=== PATIENT | female | born 1985 | race Hispanic/Latino ===

== ENCOUNTER 2022-05-13 11:07 | Emergency (ER) | payer OTHER ==
[2022-05-13 12:24] LABS: Urine Blood 3+ (Negative); Urine Glucose Negative (Negative); Urine Protein Negative (Negative); Urine Specific Gravity 1.015 (1.005-1.030); Urine pH 5.5 (5.0-7.0)
[2022-05-13 12:33] LABS: Urine Specific Gravity/Preg 1.015 (1.005-1.030)
--- NOTE | 2022-05-13 12:47 | RAD REPORT ---
EXAM DESCRIPTION: RAD - Chest Single View - 05/13/2022 12:19 pm CLINICAL HISTORY: CHEST PAIN Chest pain. COMPARISON: CHEST PA AND LAT 2 VIEW dated 10/06/2012 FINDINGS: Portable technique limits examination quality. The lungs are grossly clear. The heart is normal in size. No displaced fractures. IMPRESSION: No acute intrathoracic process suspected.
[2022-05-13 13:02] LABS: Absolute Lymphocytes (CBC) 1.8 K/uL (0.7-4.9); MCV 89.1 fL (80-100); MPV 8.4 fL (7.6-11.3); RBC Red Blood Cell Count 4.16 M/uL (3.86-4.86)
[2022-05-13 13:08] LABS: BUN Blood Urea Nitrogen 8 mg/dL (7-18); Bicarbonate 27 mmol/L (21-32); Glomerular Filtration Rate 121 ml/min (=/>90); Glucose Level 109 mg/dL (74-106); NT PRO-BNP 33 pg/mL (<125); Potassium 4.1 mmol/L (3.5-5.1); Sodium Level 140 mmol/L (136-145)
[2022-05-13 13:09] LABS: Troponin High Sensitivity < 3.0 pg/mL (<58.9)
--- NOTE | 2022-05-13 13:33 | ER ---
Nurse's Notes [facility] Name: Dari Gallardo Age: 36 yrs Sex: Female : 1985 Arrival Date: 05/13/2022 Time: 11:18 Bed 19 Private MD: Diagnosis: Palpitations Presentation: 05/13 11:18 Chief complaint: EMS states: Pt was sitting at her desk at work and all of a sudden jh5 started having sharp pains in her chest, pt denies pain radiating anywhere. Pt states this has happened before, not this bad, but has happened a couple of times since her son back in September. Coronavirus screen: Vaccine status: Patient reports receiving the 2nd dose of the covid vaccine. Client denies travel out of the [place] in the last 14 days. Ebola Screen: Patient negative for fever greater than or equal to 101.5 degrees Fahrenheit, and additional compatible Ebola Virus Disease symptoms Patient denies exposure to infectious person. Patient denies travel to an Ebola-affected area in the 21 days before illness onset. Initial Sepsis Screen: Does the patient meet any 2 criteria? No. Patient's initial sepsis screen is negative. Does the patient have a suspected source of infection? No. Patient's initial sepsis screen is negative. Risk Assessment: Do you want to hurt yourself or someone else? Patient reports no desire to harm self or others. Onset of symptoms was May 13, 2022. 11:18 Method Of Arrival: EMS: [place] [id number] 11:18 Acuity: ZAYRA 3 5 Triage Assessment: 11:24 General: Appears uncomfortable, obese, well groomed, well developed, Behavior is calm, jh5 cooperative, appropriate for age. Pain: Denies pain. Complains of pain in chest. 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 - Social history:: Smoking status: Patient denies any tobacco usage or history of. Screenin:28 [facility] ED Fall Risk Assessment (Adult) History of falling in the last 3 months, [facility] including since admission No falls in past 3 months (0 pts) Confusion or Disorientation No (0 pts) Intoxicated or Sedated No (0 pts) Impaired Gait No (0 pts) Mobility Assist Device Used No (0 pt) Altered Elimination No (0 pt) Score/Fall Risk Level 0 - 2 = Low Risk. Abuse screen: Denies threats or abuse. Denies injuries from another. Nutritional screening: No deficits noted. Tuberculosis screening: No symptoms or risk factors identified. Vital Signs: 11:18 BP 118 / 60; Pulse 69; Resp 18; Temp 98.6(O); Pulse Ox 100% ; Weight 95.25 kg; Height 5 [facility] ft. 5 in. (165.10 cm); Pain 0/10; 12:45 BP 130 / 86; Pulse 76; Resp 16; Pulse Ox 100% ; jh5 11:18 Body Mass Index 34.95 (95.25 kg, 165.10 cm) [facility] ED Course: 11:18 Patient arrived in ED. 5 11:23 Hunter Pierre [facility] 8 11:23 Anthony Salazar DO is Attending Physician. [facility] 11:24 Triage completed. [facility] 11:24 Arm band placed on right wrist. 5 11:28 Patient has correct armband on for positive identification. Bed in low position. Call [facility] light in reach. Side rails up X 1. 11:28 No provider procedures requiring assistance completed. Maintain EMS IV. Dressing [facility] intact. Site clean \T\ dry. Gauge \T\ site: 22LAC. 12:20 XRAY Chest (1 view) In Process Unspecified. EDMS 13:32 Calvin Walker MD is Referral Physician. jr8 Administered Medications: No medications were administered Medication: 11:29 VIS not applicable for this client. [facility] Outcome: 13:33 Discharge ordered by . 8 13:53 Patient left the ED. [facility] Signatures: Dispatcher [employer] EDMS Hunter Pierre PA PA jr8 Maria Ines Cortes, RN RN [facility]
--- NOTE | 2022-05-13 13:33 | EDPHYS ---
Physician Documentation [facility] Name: Dari Gallardo Age: 36 yrs Sex: Female : 1985 Arrival Date: 05/13/2022 Time: 11:18 Bed 19 Private MD: ED Physician Anthony Salazar HPI: 05/13 13:28 This 36 yrs old Female presents to ER via EMS with complaints of palpitations. jr8 13:28 The patient presents with a history of irregular heart beat. Context: The symptoms jr8 occur at rest. Onset: The symptoms/episode began/occurred acutely, today. Duration: The patient or guardian reports a single episode, that is now resolved. Modifying factors: The symptoms are aggravated by nothing. The symptoms are alleviated by nothing. Associated signs and symptoms: Pertinent positives: lightheadedness. Severity of symptoms: At their worst the symptoms were moderate in the emergency department the symptoms have resolved. The patient has experienced similar episodes in the past, a few times, but today's symptoms are worse, lasting longer, today's symptoms are similar. The patient has not recently seen a physician. 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 - Social history:: Smoking status: Patient denies any tobacco usage or history of. ROS: 13:28 Eyes: Negative for injury, pain, redness, and discharge, ENT: Negative for injury, jr8 pain, and discharge, Neck: Negative for injury, pain, and swelling, Respiratory: Negative for shortness of breath, cough, wheezing, and pleuritic chest pain, Abdomen/GI: Negative for abdominal pain, nausea, vomiting, diarrhea, and constipation, Back: Negative for injury and pain, MS/Extremity: Negative for injury and deformity, Skin: Negative for injury, rash, and discoloration, Neuro: Negative for headache, weakness, numbness, tingling, and seizure. 13:28 Cardiovascular: Positive for palpitations. Exam: 13:28 Constitutional: This is a well developed, well nourished patient who is awake, alert, jr8 and in no acute distress. Eyes: Pupils equal round and reactive to light, extra-ocular motions intact. Lids and lashes normal. Conjunctiva and sclera are non-icteric and not injected. Cornea within normal limits. Periorbital areas with no swelling, redness, or edema. Cardiovascular: Regular rate and rhythm with a normal S1 and S2. No gallops, murmurs, or rubs. Normal PMI, no JVD. No pulse deficits. Respiratory: Lungs have equal breath sounds bilaterally, clear to auscultation and percussion. No rales, rhonchi or wheezes noted. No increased work of breathing, no retractions or nasal flaring. Abdomen/GI: Soft, non-tender, with normal bowel sounds. No distension or tympany. No guarding or rebound. No evidence of tenderness throughout. Skin: Warm, dry with normal turgor. Normal color with no rashes, no lesions, and no evidence of cellulitis. MS/ Extremity: Pulses equal, no cyanosis. Neurovascular intact. Full, normal range of motion. Neuro: Awake and alert, GCS 15, oriented to person, place, time, and situation. Cranial nerves II-XII grossly intact. Motor strength 5/5 in all extremities. Sensory grossly intact. Cerebellar exam normal. Normal gait. 13:28 ECG was reviewed by the Attending Physician. Vital Signs: 11:18 BP 118 / 60; Pulse 69; Resp 18; Temp 98.6(O); Pulse Ox 100% ; Weight 95.25 kg; Height 5 jh5 ft. 5 in. (165.10 cm); Pain 0/10; 12:45 BP 130 / 86; Pulse 76; Resp 16; Pulse Ox 100% ; jh5 11:18 Body Mass Index 34.95 (95.25 kg, 165.10 cm) 5 MDM: 11:38 Patient medically screened. [facility] 13:28 Data reviewed: vital signs, nurses notes, lab test result(s), cardiac enzymes, troponin jr i, CBC, white blood cell count, hemoglobin, hematocrit, platelets, electrolytes, sodium, potassium, chloride, serum bicarbonate, BUN, creatinine, serum glucose, EKG, radiologic studies, plain films, and as a result, I will discharge patient. Independent interpretation of the following test(s) in the Emergency Department EKG: See my EKG interpretation above X-Ray: My interpretation is No acute cardiothoracic findings . Counseling: I had a detailed discussion with the patient and/or guardian regarding: the historical points, exam findings, and any diagnostic results supporting the discharge/admit diagnosis, lab results, radiology results, the need for outpatient follow up, a storage battery charger, to return to the emergency department if symptoms worsen or persist or if there are any questions or concerns that arise at home. ED course: Discussed with patient that there is no acute findings on chest x-ray, ECG, lab work including cardiac enzyme. Most likely palpitations secondary to occasional premature ventricular contraction or the like. Recommended seeing cardiology for Holter monitor if they feel it is necessary. If worsening point time to come back for further evaluation. Otherwise hemodynamically stable and safe to be discharged at home. Patient agrees with plan and will follow up and or come back.. 05/13 11:38 Order name: Basic Metabolic Panel; Complete Time: 13: [facility] 05/13 11:38 Order name: CBC with Diff; Complete Time: 13: [facility] 05/13 11:38 Order name: NT PRO-BNP; Complete Time: 13: [facility] 05/13 11:38 Order name: Troponin HS; Complete Time: 13: [facility] 05/13 12:25 Order name: Urine Dipstick-Ancillary; Complete Time: 13:28 EDGA 05/13 12:30 Order name: Urine --Ancillary (enter results) bd 05/13 11:38 Order name: XRAY Chest (1 view); Complete Time: 13:28 05/13 11:38 Order name: EKG; Complete Time: 11:39 05/13 11:38 Order name: Cardiac monitoring; Complete Time: 11:40 05/13 11:38 Order name: EKG - Nurse/Tech; Complete Time: 11:40 05/13 11:38 Order name: IV Saline Lock; Complete Time: 11:05/13 11:38 Order name: Labs collected and sent; Complete Time: 11: 05/13 11:38 Order name: O2 Per Protocol; Complete Time: :05/13 11:38 Order name: O2 Sat Monitoring; Complete Time: :05/13 12:07 Order name: Labs - recollect needed: recollect green and lavender top; Complete Time: bd 12:45 EC: Rate is 72 beats/min. Rhythm is regular, Normal Sinus Rhythm. QRS [place] is Normal. NC jr8 interval is normal at 158 msec. QRS interval is normal at 98 msec. QT interval is normal at 402 msec. No Q waves. T waves are Normal. No ST changes noted. Clinical impression: Normal ECG. Interpreted by me. Reviewed by me. Administered Medications: No medications were administered Disposition: 19:18 Co-signature as Attending Physician, Anthony Salazar DO I was immediately available on-site ms3 in the Emergency Department for consultation in the care of the patient. Disposition Summary: 05/13/22 13:33 Discharge Ordered Location: Home jr8 Problem: new jr8 Symptoms: have improved jr8 Condition: Stable jr8 Diagnosis - Palpitations jr8 Followup: jr8 - With: Calvin Walker MD - When: 2 - 3 days - Reason: Recheck today's complaints, Continuance of care, Re-evaluation by your physician Discharge Instructions: - Discharge Summary Sheet jr8 - Palpitations jr8 Forms: - Medication Reconciliation Form jr8 - Thank You Letter jr8 - Antibiotic Education jr8 - Prescription Opioid Use jr8 Signatures: Dispatcher [employer] EDMS Amy Bird Josh, PA PA jr8 Anthony Salazar DO DO ms3 Maria Ines Cortes, RN RN jh5
[2022-05-13 14:48] VITALS: BP 118/60; TEMP 98.6; O2SAT 100
--- NOTE | 2022-05-14 12:29 | EKG ---
Test Date: 2022-05-13 Test Time: 11:25:32 Animal Anatomist: ONI MEASUREMENT RESULTS: Intervals: Rate: 72 NM: 158 QRSD: 98 QT: 402 QTc: 440 [place]: P: 46 NM: 158 QRS: 0 T: 36 INTERPRETIVE STATEMENTS: Normal sinus rhythm Incomplete right bundle branch block Moderate voltage criteria for LVH, may be normal variant Borderline ECG No previous ECG available for comparison Electronically Signed On 05-14-22 12:25:38 RN HOUSE SUPERVISOR by Francisco Quezada
== END 2022-05-13 13:53 | disposition home or self-care (01) ==
LOC: ER 11:07
DX: R00.2 Palpitations (principal)
CPT/HCPCS: 36415; 71045; 80048; 81003; 81025; 83880; 84484; 85025; 93005; 99283

== ENCOUNTER 2022-10-10 20:09 | Emergency (ER) | payer OTHER ==
--- OUTSIDE RECORDS SUMMARY | 2022-10-10 20:12 | XMS REPORT | Continuity of Care Document ---
:1985 Author Organization [facility] t Address [address] [place] [address] [place] [id number] Care Team Providers Name Role Phone PCP, PATIENT DOES NOT HAVE A Primary Care Physician Unavaila MANDY Steel Attending Clinician Unavailable Mandy Kingston DO Attending Clinician Payers Payer Name Policy Type Policy Number Effective Date Expiration Date S [facility] [id number] 2014 00:00:00 Problems This patient has no known problems. Allergies, Adverse Reactions, Alerts Allergy Allergy Status Severity Reaction(s) Onset Inactive Treating Comm ents Source Name Type Date Date Clinician NO KNOWN Drug Active [facility] ALLERGIE Class [facility] of [facility] Social History Social Habit Start Date Stop Date Quantity Comments Source Exposure to Not sure [facility] SARS-CoV-2 (event) Medica l Branch Sex Assigned At [birth year] [facility] 00:00:00 00:00:00 [facility] Smoking Status Start Date Stop Date Source Unknown if ever smoked [facility] Medications Ordered Filled Start Stop Current Ordering Indication Dosage Frequency Signature Comments Components Source Medication Medication Date Date Medication? Clinician (SIG) Name Name predniSONE 2021- No [id number] 60mg Take 6 [facility] 10 mg 3-10 03-18 tablets by ity of tablet 00:00: 04:59 mouth [place] 00 :00 daily for Medical 7 days. Branch valACYclovi 2021- No [id number] 1g Take 1 Univers r (VALTREX) 3-10 03-18 tablet by it y of 1 gram 00:00: 04:59 mouth 3 [place] tablet 00 :00 (three) Medical times [place] daily for 7 days. Vital Signs Vital Name Observation Time Observation Value Comments Source Systolic blood 2021-06-29 00:14:00 142 mm[Hg] Univer sity of pressure [facility] Diastolic blood 2021-06-29 00:14:00 82 mm[Hg] Unive rsity of pressure [facility] Heart rate 2021-06-29 00:14:00 96 /min [facility] Body temperature 2021-06-29 00:14:00 37.17 [facility] 2021-06-29 00:14:00 18 /min [facility] Body weight 2021-06-29 00:14:00 95.255 kg [facility] Oxygen saturation in 2021-06-29 00:14:00 99 /min [facility] Arterial blood by [place] [facility] Pulse oximetry Branch Procedures Procedure Date / Time Performed Performing Clinician [facility] e ASSIGNMENT OF BENEFITS 2021-06-29 00:43:24 Doctor Unassigned, No [facility] NOTICE OF PRIVACY 2021-06-29 00:07:43 Doctor Unassigned, No [facility] Encounters Start End Encounter Admission Attending Care Care Encounter Source Date/Time Date/Time Type Type Clinicians Facility Department ID 2021-06-28 2021-06-28 Emergency X LISA [facility] ERT [id number] [facility] 18:18:00 18:46:00 MANDY jose [facility] 2021-06-28 2021-06-28 Emergency Lisa [facility] [id number] [facility] 18:18:00 18:46:00 Mandy HANKS [id number] damon [facility] [id number] [facility] [id number] Medi [facility] 084 Branch Results This patient has no known results.
[2022-10-10] MEDS ORDERED: IBUPROFEN 400 MG TAB ONE (20:52)
--- NOTE | 2022-10-10 21:37 | RAD REPORT ---
EXAM DESCRIPTION: RAD - Foot Right 3 View - 10/10/2022 9:24 pm CLINICAL HISTORY: injury, pain COMPARISON: <Comparisons> FINDINGS: No fracture or dislocation seen.
--- NOTE | 2022-10-10 21:44 | ER ---
Nurse's Notes [facility] Name: Dari Gallardo Age: 37 yrs Sex: Female : 1985 Arrival Date: 10/10/2022 Time: 20:09 Bed 11 Private MD: Diagnosis: Sprain of foot Presentation: 10/10 20:41 Chief complaint: Patient states: I was playing softball and i fell and i felt a pop in kd3 my right foot and now it hurts to put pressure down on it. Coronavirus screen: Vaccine status: Patient reports being unvaccinated. Ebola Screen: No symptoms or risks identified at this time. Initial Sepsis Screen: Does the patient meet any 2 criteria? No. Patient's initial sepsis screen is negative. Does the patient have a suspected source of infection? No. Patient's initial sepsis screen is negative. Risk Assessment: Do you want to hurt yourself or someone else? Patient reports no desire to harm self or others. Onset of symptoms was October 10, 2022. 20:41 Method Of Arrival: Wheelchair kd3 20:41 Acuity: ZAYRA 4 kd3 Triage Assessment: 20:42 General: Appears uncomfortable, Behavior is calm, cooperative. Pain: Complains of pain kd3 in dorsum of right foot. Musculoskeletal: Circulation, motion, and sensation intact. 21:56 Injury Description: Bruise. kd3 Historical: - Allergies: 20:42 No Known Allergies; kd3 - Immunization history:: Adult Immunizations up to date. - Social history:: Smoking status: Patient denies any tobacco usage or history of. Screenin:55 [facility] ED Fall Risk Assessment (Adult) History of falling in the last 3 months, kd3 including since admission No falls in past 3 months (0 pts) Confusion or Disorientation No (0 pts) Intoxicated or Sedated No (0 pts) Impaired Gait No (0 pts) Mobility Assist Device Used No (0 pt) Altered Elimination No (0 pt) Score/Fall Risk Level 0 - 2 = Low Risk Maintained a safe environment. Abuse screen: Denies threats or abuse. Denies injuries from another. Nutritional screening: No deficits noted. Tuberculosis screening: No symptoms or risk factors identified. Vital Signs: 20:41 BP 132 / 80; Pulse 102; Resp 18; Temp 98.7(O); Pulse Ox 99% on R/A; Weight 99.79 kg; kd3 Height 5 ft. 5 in. ; 20:41 Body Mass Index 36.61 (99.79 kg, 165.1 cm) kd3 ED Course: 20:10 Patient arrived in ED. [facility] 20:22 Gautam Godinez PA is PHCP. [facility] 20:22 Hiren Rai MD is Attending Physician. [facility] 20:36 Stella Fernández, JANETTE is Primary Nurse. kd3 20:42 Triage completed. kd3 20:42 Arm band placed on right wrist. kd3 21:26 Foot Right 3 View XRAY In Process Unspecified. EDMS 21:43 Glynn Levy DPM is Referral Physician. jmm 21:56 Patient has correct armband on for positive identification. kd3 21:56 No provider procedures requiring assistance completed. Patient did not have IV access kd3 during this emergency room visit. Administered Medications: 20:45 Drug: Ibuprofen PO 800 mg Route: PO; kd3 Medication: 21:56 VIS not applicable for this client. kd3 Outcome: 21:44 Discharge ordered by MD. [facility] 21:56 Discharged to home via wheelchair, with crutches, with family. kd3 21:56 Condition: stable 21:56 Discharge instructions given to patient, Instructed on discharge instructions, follow up and referral plans. medication usage, Demonstrated understanding of instructions, follow-up care, medications, Prescriptions given X 2. 21:57 Patient left the ED. kd3 Signatures: Dispatcher [employer] EDMS Gautam Godinez PA PA jmm Alexander, Jessica [facility] Stella Fernández, JANETTE RN kd3
--- NOTE | 2022-10-10 21:44 | EDPHYS ---
Physician Documentation [facility] Name: Dari Gallardo Age: 37 yrs Sex: Female : 1985 Arrival Date: 10/10/2022 Time: 20:09 Bed 11 Private MD: ED Physician Hiren Rai HPI: 10/10 21:40 This 37 yrs old Female presents to ER via Wheelchair with complaints of Foot jmm Injury. 21:40 The patient presents with an injury, pain. Onset: The symptoms/episode began/occurred jmm acutely, just prior to arrival. This is a 37 year old female with no chronic medical conditions that presents to the ED with complaints of right anterior foot pain. Patient twisted her foot while playing softball. . Historical: - Allergies: 20:42 No Known Allergies; kd3 - Immunization history:: Adult Immunizations up to date. - Social history:: Smoking status: Patient denies any tobacco usage or history of. ROS: 21:40 Constitutional: Negative for fever, chills, and weight loss, Cardiovascular: Negative jmm for chest pain, palpitations, and edema, Respiratory: Negative for shortness of breath, cough, wheezing, and pleuritic chest pain. 21:40 MS/extremity: Positive for injury or acute deformity. 21:40 All other systems are negative. Exam: 21:40 Constitutional: This is a well developed, well nourished patient who is awake, alert, jmm and in no acute distress. Head/Face: atraumatic. Eyes: EOMI, no conjunctival erythema appreciated ENT: Moist Mucus Membranes Neck: Trachea midline, Supple Chest/axilla: Normal chest wall appearance and motion. Cardiovascular: Regular rate and rhythm. No edema appreciated Respiratory: Normal respirations, no respiratory distress appreciated Abdomen/GI: Non distended Back: Normal ROM Skin: General appearance color normal 21:40 Musculoskeletal/extremity: anterior foot pain on palpation, compartments are soft, full dorsalis pulse, NVI. 21:40 Skin: Appearance: Color: normal in color. 21:40 Neuro: Orientation: is normal, Mentation: is normal, Memory: is normal. 21:40 Psych: Behavior/mood is pleasant, cooperative. Vital Signs: 20:41 BP 132 / 80; Pulse 102; Resp 18; Temp 98.7(O); Pulse Ox 99% on R/A; Weight 99.79 kg; kd3 Height 5 ft. 5 in. ; 20:41 Body Mass Index 36.61 (99.79 kg, 165.1 cm) kd3 MDM: 20:40 Patient medically screened. [facility] 21:42 Differential diagnosis: fracture, sprain, strain. Data reviewed: vital signs, nurses [facility] notes, radiologic studies, plain films. I considered the following discharge prescriptions or medication management in the emergency department Medications were administered in the Emergency Department. See MAR. Independent interpretation of the following test(s) in the Emergency Department X-Ray: My interpretation is No fracture seen. Counseling: I had a detailed discussion with the patient and/or guardian regarding: the historical points, exam findings, and any diagnostic results supporting the discharge/admit diagnosis, radiology results, the need for outpatient follow up, to return to the emergency department if symptoms worsen or persist or if there are any questions or concerns that arise at home. 10/10 20:41 Order name: Foot Right 3 View XRAY; Complete Time: 21:40 [facility] 10/10 21:40 Order name: Anjel wrap-joint; Complete Time: 21:57 [facility] 10/10 21:40 Order name: Crutches; Complete Time: 21:57 [facility] Administered Medications: 20:45 Drug: Ibuprofen PO 800 mg Route: PO; kd3 Disposition: 10/11 05:24 Co-signature as Attending Physician, Hiren Rai MD I agree with the assessment sp4 and plan of care. I reviewed the patient's care provided by the Advanced Practice Provider and agree with the diagnosis and treatment plan. Disposition Summary: 10/10/22 21:44 Discharge Ordered Location: Home [facility] Condition: Stable [facility] Diagnosis - Sprain of foot [facility] Followup: [facility] - With: Glynn Levy DPM - When: 2 - 3 days - Reason: Recheck today's complaints, Continuance of care, Re-evaluation by your physician Discharge Instructions: - Discharge Summary Sheet [facility] - Foot Sprain [facility] Forms: - Medication Reconciliation Form [facility] - Thank You Letter [facility] - Antibiotic Education [facility] - Prescription Opioid Use [facility] - Work release form kd3 Prescriptions: - Diclofenac Sodium 75 mg Oral Tablet Sustained Release - take 1 tablet by ORAL route 2 times per day; 30 tablet; Refills: 0, Product [facility] Selection Permitted - orphenadrine citrate 100 mg Oral Tablet Sustained Release - take 1 tablet by ORAL route 2 times per day As needed; 20 tablet; Refills: 0, [facility] Product Selection Permitted Signatures: Dispatcher [employer] Gautam Purdy PA PA jmm Doucette, Kyli, RN RN kd3 Hiren Rai MD MD sp4
[2022-10-10 22:06] VITALS: BP 132/80; TEMP 98.7; O2SAT 99
== END 2022-10-10 21:57 | disposition home or self-care (01) ==
LOC: ER 20:09
DX: S93.601A Unspecified sprain of right foot, initial encounter (principal)
CPT/HCPCS: 99283

== ENCOUNTER 2023-01-06 07:27 | Day surgery (SDC) | payer OTHER ==
[2023-01-06] MEDS ORDERED: Ringers Lactate 1,000 ML IV ONE ×2 (08:15→10:35)
[2023-01-06 08:26] LABS: Albumin 3.8 g/dL (3.4-5.0); Bilirubin Direct 0.1 mg/dL (0-0.2); Bilirubin Indirect, Calculated 0.4 mg/dL (0.2-0.8); Bilirubin Total 0.5 mg/dL (0.2-1.0); Protein, Total 7.6 g/dL (6.4-8.2)
[2023-01-06 08:44] LABS: Urine Specific Gravity/Preg >1.030 (1.005-1.030)
[2023-01-06] MEDS ORDERED: FENTANYL CITR 100 MCG/2 ML ONE (08:46)
[2023-01-06] MEDS ORDERED: propofoL 200 MG/20 ML VIAL IV ONE (08:46)
[2023-01-06] MEDS ORDERED: ROCURONIUM 50 MG/5 ML VIAL IV ONE ×2 (08:47→10:40)
[2023-01-06] MEDS ORDERED: MIDAZOLAM HCL 2 MG/2 ML INJ ONE (08:47)
[2023-01-06] MEDS ORDERED: ONDANSETRON 4 MG/2 ML VIAL ONE ×2 (08:48→11:35)
[2023-01-06] MEDS ORDERED: KETOROLAC 30 MG/ML INJ ONE (08:48)
[2023-01-06] MEDS ORDERED: dexAMETHasone 10 MG/ML VIAL ONE ×2 (08:48→09:44)
[2023-01-06] MEDS ORDERED: LIDOCAINE 2% MPF 5 ML VIAL ONE (08:49)
[2023-01-06 08:50] VITALS: O2SAT 100
[2023-01-06] MEDS: CEFOXITIN SODIUM 1 GM/VIAL ONE ×2 (08:59→09:43)
[2023-01-06] MEDS ORDERED: NS 0.9% VIAL 10 ML ONE (09:44)
[2023-01-06] MEDS ORDERED: EPINEPHRINE 1 MG/ML VIAL ONE (09:45)
--- NOTE | 2023-01-06 10:44 | P.BOP ---
Preoperative diagnosis: acute cholecystitis, symptomatic cholelithiasis Postoperative diagnosis: same Primary procedure: Laparoscopic cholecystectomy Gis Programmer: Fabiana Engel (Jarocho) Estimated blood loss: <10cc Specimen: gb Findings: as above Anesthesia: General Complications: None Transferred to: Recovery Room Condition: Good
[2023-01-06] MEDS ORDERED: Mastisol Adhesive Liq ONE (10:48)
[2023-01-06] MEDS: HYDROMORPHONE HCL 1 MG/ML INJ ONE ×2 (11:35→11:41)
[2023-01-06 13:44] VITALS: BP 109/61; TEMP 96.8
--- NOTE | 2023-01-06 22:18 | OP ---
Date of Procedure: 01/06/2023 Surgeon: Adams Whaley MD Pediatric Nurse: HENRRY Greco. Preoperative Diagnoses: Acute cholecystitis, symptomatic cholelithiasis. Postoperative Diagnoses: Acute cholecystitis, symptomatic cholelithiasis. Procedure: Laparoscopic cholecystectomy. Estimated Blood Loss: Less than 10 cc. Specimen: Gallbladder. Findings: As above. Anesthesia: General plus local. Complications: None. Indication: This is the case of a 37-year-old female, who comes to us with above diagnosis. I fully explained the benefits, alternatives, and risks of laparoscopic, possible open cholecystectomy which include, but not limited to, infection, bleeding, damage to adjacent structures, anesthesia complica tion, choledocholithiasis, bile leak, pancreatitis, AK, and even . She also understands this ma y not relieve any symptoms. She might need more than one surgical intervention. She understood, sig omaira a consent. Procedure In Detail: Patient was brought to the operating room, placed in supine position. Anesthes ia was done without complication. Abdominal area was prepped and draped in a sterile fashion. Eugenie ine 0.5% was injected for local anesthetic followed by sharp incision of skin in the infraumbilical r egion. Incision was carried down to fascia, which was opened under direct vision. Peritoneum was en countered, opened under direct vision. Vicryl #1 placed inside the fascia. Saravanan trocar was carefu lly introduced. No bleeding was obtained. I placed 3 more trocars, 5 mm each one of them, 1 in the epigastric area, 2 in the right upper quadrant using same technique which consisted of local anesthet ic, sharp incision of the skin and introduction of the trocars under direct vision. This allowed me to put a grasper in the fundus of the gallbladder and another grasper in the infundibulum, retracting the gallbladder in the inferolateral fashion exposing the triangle of Calot, obtaining critical view . Cystic duct and cystic artery were clearly isolated, freed circumferentially, and a connection bet ween those, and the gallbladder was clearly identified. I proceeded to ligate those by using at leas t 3 clips proximal, 1 clip distal, ligation in middle, and the same was done with the cystic artery. A small little branch along the cystic artery was also ligated using the same technique. Hepatic ar teries and common bile duct were protected at all times. Gallbladder was removed from the liver usin g Bovie cauterizer and removed from abdominal cavity using EndoCatch through the umbilical incision. Area was inspected once again. No bile leak. No bleeding. At that moment, I proceeded to remove t he trocars under direct vision, deflating the pneumoperitoneum, closing the fascia with #1 Vicryl. I rrigated the subcutaneous tissue, closed that with 3-0 chromic and skin in a subcuticular fashion wit h 3-0 chromic and Steri-Strips on top. Sponge count and instrument counts correct. Patient tolerate d the procedure well. Patient was sent to Recovery in stable condition. BOSTON/JOSE Voice ID: [id number] Report ID: [id number]
--- NOTE | 2023-01-06 22:22 | DS ---
Date of Discharge: 01/06/2023 Diagnosis: Acute cholecystitis, symptomatic cholelithiasis. Procedure: Laparoscopic cholecystectomy. Disposition: Home. Activity: As tolerated. No heavy lifting. Plan: Follow up in my office in 1 week. Call for appointment at [phone]. Keep area dry for 48 dolores rs, then may shower. Keep Steri-Strips intact. BOSTON/JOSE Voice ID: [id number] Report ID: [id number]
== END 2023-01-06 13:30 | disposition home or self-care (01) ==
LOC: OR 07:27
PROVIDERS: ATTEND Surgery
PROC: 0FT44ZZ Resection of Gallbladder, Percutaneous Endoscopic Approach (ICD-10-PCS; principal; 2023-01-06 09:30)
DX: K80.10 Calculus of gallbladder with chronic cholecystitis without obstruction (principal)
CPT/HCPCS: 36415; 81025; 80076; 88304; 83690; 47562; A4216; J2704; J2001; J2250; J3010; J1100 ×2; J0171; J1170; J0694; J2405 ×2; J7120 ×2

== ENCOUNTER 2023-01-07 19:58 | Emergency (ER) | payer OTHER ==
[2023-01-07 20:46] LABS: Absolute Lymphocytes (CBC) 3.2 K/uL (0.7-4.9); Hematocrit 35.9 % (36.0-45.0); Lymphocytes % 28.9 % (15.3-44.8); MCV 88.4 fL (80-100); MPV 8.6 fL (7.6-11.3); Platelets 305 thou/uL (152-406); RBC Red Blood Cell Count 4.06 M/uL (3.86-4.86)
[2023-01-07] MEDS ORDERED: LORAZEPAM 0.5 MG TABLET ONE (20:53)
--- NOTE | 2023-01-07 21:04 | RAD REPORT ---
EXAM DESCRIPTION: RAD - Chest Single View - 01/07/2023 8:54 pm CLINICAL HISTORY: PALPITATIONS Chest pain. COMPARISON: <Comparisons> FINDINGS: Portable technique limits examination quality. The lungs are underinflated but grossly clear. The heart is normal in size. No displaced fractures. IMPRESSION: No acute intrathoracic process suspected.
[2023-01-07 21:06] LABS: Albumin 3.6 g/dL (3.4-5.0); Bilirubin Direct 0.1 mg/dL (0-0.2); Bilirubin Indirect, Calculated 0.2 mg/dL (0.2-0.8); Bilirubin Total 0.3 mg/dL (0.2-1.0); Potassium 3.4 mEq/L (3.5-5.1); Protein, Total 7.1 g/dL (6.4-8.2); Troponin High Sensitivity 3.9 pg/mL (<58.9)
[2023-01-07] MEDS ORDERED: NA CHLORIDE 0.9% 1,000 ML ONE (21:22)
--- NOTE | 2023-01-07 21:59 | RAD REPORT ---
EXAM DESCRIPTION: CT - Chest For Pe Angio - 01/07/2023 9:47 pm CLINICAL HISTORY: Chest pain. PALPITATIONS COMPARISON: No comparisons TECHNIQUE: CT angiogram of the pulmonary arteries was performed with MIP. All CT scans are performed using dose optimization technique as appropriate and may include automated exposure control or mA/KV adjustment according to patient size. FINDINGS: No evidence of pulmonary thromboembolism. No acute aortic finding demonstrated. The lungs are clear. No significant pericardial or pleural fluid. No concerning bony finding. IMPRESSION: No evidence of pulmonary thromboembolism. No acute lung findings.
--- NOTE | 2023-01-07 22:02 | ER ---
Nurse's Notes [facility] Name: Dari Gallardo Age: 37 yrs Sex: Female : 1985 Arrival Date: 01/07/2023 Time: 19:58 Bed 15 Private MD: Diagnosis: Palpitations;Hypokalemia Presentation: 01/07 20:11 Chief complaint: Patient states: had a laparoscopic cholycystectomy yesterday. Reports me1 that she sat up a little while ago and had some palpitations, became sweaty and had some tingling to the left side of her head. Also reports that she has only urinated two times today. Coronavirus screen: Vaccine status: Patient reports being unvaccinated. Ebola Screen: No symptoms or risks identified at this time. Initial Sepsis Screen: Does the patient meet any 2 criteria? No. Patient's initial sepsis screen is negative. Does the patient have a suspected source of infection? No. Patient's initial sepsis screen is negative. Risk Assessment: Do you want to hurt yourself or someone else? Patient reports no desire to harm self or others. Onset of symptoms was January 06, 2023. 20:11 Method Of Arrival: Wheelchair me1 20:11 Acuity: ZAYRA 3 me1 Triage Assessment: 20:22 General: Appears uncomfortable, obese, well groomed, Behavior is calm, cooperative, me1 appropriate for age. Pain: Complains of pain in umbilical area Pain does not radiate. Pain currently is 4 out of 10 on a pain scale. Quality of pain is described as tender, Pain began gradually, Is continuous. Neuro: Level of Consciousness is awake, alert, obeys commands, Oriented to person, place, time, situation, Appropriate for age. Cardiovascular: Capillary refill < 3 seconds Patient's skin is warm and dry. Respiratory: Airway is patent Respiratory effort is even, unlabored, Respiratory pattern is regular, symmetrical. Derm: dressings to abdomen are clean and dry from lap cholecystectomy yesterday. 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 - Social history:: Smoking status: Patient denies any tobacco usage or history of. Screenin:26 [facility] ED Fall Risk Assessment (Adult) History of falling in the last 3 months, me1 including since admission No falls in past 3 months (0 pts) Confusion or Disorientation No (0 pts) Intoxicated or Sedated No (0 pts) Impaired Gait No (0 pts) Mobility Assist Device Used No (0 pt) Altered Elimination No (0 pt) Score/Fall Risk Level 0 - 2 = Low Risk. Abuse screen: Denies threats or abuse. Nutritional screening: No deficits noted. Tuberculosis screening: No symptoms or risk factors identified. Assessment: 20:26 General: see triage assessment. . me1 Vital Signs: 20:11 BP 123 / 63; Pulse 97; Resp 19; Temp 98.5(O); Pulse Ox 99% on R/A; Weight 104.33 kg; me1 Height 5 ft. 5 in. ; Pain 4/10; 20:57 BP 120 / 89; Pulse 80; Resp 15; Pulse Ox 100% on R/A; me1 22:37 BP 105 / 54; Pulse 70; Resp 16; Pulse Ox 98% on R/A; me1 20:11 Body Mass Index 38.27 (104.33 kg, 165.1 cm) me1 20:11 Pain Scale: Adult hi1 ED Course: 19:59 Patient arrived in ED. jj6 19:59 Anthony Salazar DO is Attending Physician. ms3 20:10 Eda Mackey, RN is Primary Nurse. me1 20:22 Triage completed. me1 20:22 Arm band placed on Patient placed in waiting room. me1 20:26 Patient has correct armband on for positive identification. Bed in low position. Call hi1 light in reach. Side rails up X2. Provided Education on: POC. Verbalized understanding.. 20:26 No provider procedures requiring assistance completed. me1 20:26 Inserted saline lock: 22 gauge in right forearm, using aseptic technique. me1 20:39 Basic Metabolic Panel Sent. me1 20:39 CBC with Diff Sent. me1 20:39 D-Dimer Sent. me1 20:39 LFT's Sent. me1 20:39 Magnesium Sent. me1 20:39 Troponin HS Sent. me1 20:56 XRAY Chest (1 view) In Process Unspecified. EDMS 21:04 Attending Physician role handed off by Anthony Salazar DO [facility] 21:04 Robert Grant MD is Attending Physician. [facility] 21:49 CT Chest For PE Angio In Process Unspecified. EDMS 22:37 IV discontinued, intact, bleeding controlled, No redness/swelling at site. Pressure me1 dressing applied. Administered Medications: 20:49 Drug: LORazepam PO 0.5 mg PO once Route: PO; me1 22:11 Follow up: Response: No adverse reaction me1 21:15 Drug: NS 0.9% IV 1000 ml IV at 1 bolus Per protocol; 1000 mL bolus Route: IV; Rate: 1 me1 bolus; Site: right forearm; 22:11 Follow up: IV Status: Completed infusion me1 22:11 Drug: Potassium PO Effervescent Tablet 25 mEq PO once; dissolve in 4 ounces of water or me1 juice Route: PO; 22:38 Follow up: Response: No adverse reaction me1 Medication: 20:26 VIS not applicable for this client. me1 Outcome: 22:01 Discharge ordered by . [facility] 22:37 Discharged to home ambulatory, me1 22:37 Condition: stable 22:37 Discharge instructions given to patient, Instructed on discharge instructions, follow up and referral plans. Demonstrated understanding of instructions, follow-up care, 22:38 Patient left the ED. me1 Signatures: Dispatcher [employer] Robert Rider MD MD cha Sims, Marcus, DO DO ms3 Joyce Limon jj6 Eda Mackey RN RN me1
--- NOTE | 2023-01-07 22:02 | EDPHYS ---
Physician Documentation [facility] Name: Dari Gallardo Age: 37 yrs Sex: Female : 1985 Arrival Date: 01/07/2023 Time: 19:58 Bed 15 Private MD: KAILEY Physician Robert Grant HPI: 01/07 21:05 This 37 yrs old Female presents to ER via Wheelchair with complaints of ms3 Numbness Of Face, Post Surgical Pain, Dizziness, General Weakness. 21:05 37-year-old female with past medical history of anxiety presents for palpitations, ms3 shortness of breath, hot flash that occurred prior to arrival. Patient notes she did have a cholecystectomy performed by Dr. Whaley yesterday. Patient denies pain at this time. Patient denies any alleviating or inciting factors. 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 - Social history:: Smoking status: Patient denies any tobacco usage or history of. ROS: 21:05 Constitutional: Negative for fever, and chills. Neck: Negative for injury, pain, and ms3 swelling, Respiratory: Negative for shortness of breath, cough, wheezing, and pleuritic chest pain, Abdomen/GI: Negative for abdominal pain, nausea, vomiting, diarrhea, and constipation, 21:05 MS/Extremity: Negative for injury and deformity, 21:05 Cardiovascular: Positive for palpitations, 21:05 All other systems are negative, Exam: 21:05 Constitutional: This is a well developed, well nourished patient who is awake, alert, ms3 and in no acute distress. Head/Face: Normocephalic, atraumatic. Neck: Trachea midline, no cervical lymphadenopathy. Supple, full range of motion without nuchal rigidity, or vertebral point tenderness. No Meningismus. Chest/axilla: Normal chest wall appearance and motion. Nontender with no deformity. Cardiovascular: Regular rate and rhythm with a normal S1 and S2. No gallops, murmurs, or rubs. Normal PMI, no JVD. No pulse deficits. Respiratory: Lungs have equal breath sounds bilaterally, clear to auscultation and percussion. No rales, rhonchi or wheezes noted. No increased work of breathing, no retractions or nasal flaring. Skin: Warm, dry with normal turgor. Normal color with no rashes, no lesions, and no evidence of cellulitis. MS/ Extremity: Pulses equal, no cyanosis. Neurovascular intact. Full, normal range of motion. 21:05 Abdomen/GI: Inspection: abdomen appears normal, Bowel sounds: normal, Palpation: mild abdominal tenderness, in the umbilical area, 21:11 ECG was reviewed by the Attending Physician. ms3 Vital Signs: 20:11 BP 123 / 63; Pulse 97; Resp 19; Temp 98.5(O); Pulse Ox 99% on R/A; Weight 104.33 kg; me1 Height 5 ft. 5 in. ; Pain 4/10; 20:57 BP 120 / 89; Pulse 80; Resp 15; Pulse Ox 100% on R/A; me1 22:37 BP 105 / 54; Pulse 70; Resp 16; Pulse Ox 98% on R/A; me1 20:11 Body Mass Index 38.27 (104.33 kg, 165.1 cm) me1 20:11 Pain Scale: Adult me1 MDM: 20:13 Patient medically screened. ms3 21:05 Differential diagnosis: Anxiety versus PE versus electrolyte abnormality. ms3 21:07 Transition of care: After a detail discussion of the patient's case, care is ms3 transferred to Robert Grant MD. 01/07 20:13 Order name: Basic Metabolic Panel; Complete Time: 22:00 ny3 01/07 20:13 Order name: CBC with Diff; Complete Time: 21:04 ms3 01/07 20:13 Order name: D-Dimer; Complete Time: 22:00 ny3 01/07 20:13 Order name: LFT's; Complete Time: 22:00 ny3 01/07 20:13 Order name: Magnesium; Complete Time: 22:00 ny3 01/07 20:13 Order name: Troponin HS; Complete Time: 22:00 ny3 01/07 20:13 Order name: XRAY Chest (1 view); Complete Time: 22:00 ny3 01/07 21:05 Order name: CT Chest For PE Angio; Complete Time: 22:00 [facility] 01/07 20:13 Order name: EKG; Complete Time: 20:14 ms3 01/07 20:13 Order name: Cardiac monitoring; Complete Time: 20:39 ms3 01/07 20:13 Order name: EKG - Nurse/Tech; Complete Time: 20:57 ms3 01/07 20:13 Order name: IV Saline Lock; Complete Time: 20:39 ms3 01/07 20:13 Order name: Labs collected and sent; Complete Time: 20:39 ms3 01/07 20:13 Order name: O2 Per Protocol; Complete Time: 20:39 ms3 01/07 20:13 Order name: O2 Sat Monitoring; Complete Time: 20:39 ms3 EC:11 Rate is 82 beats/min. Rhythm is regular. QRS [place] is Normal. NM interval is normal. QRS ms3 interval is normal. Clinical impression: Normal ECG. Interpreted by me. Reviewed by me. Administered Medications: 20:49 Drug: LORazepam PO 0.5 mg PO once Route: PO; me1 22:11 Follow up: Response: No adverse reaction me1 21:15 Drug: NS 0.9% IV 1000 ml IV at 1 bolus Per protocol; 1000 mL bolus Route: IV; Rate: 1 me1 bolus; Site: right forearm; 22:11 Follow up: IV Status: Completed infusion me1 22:11 Drug: Potassium PO Effervescent Tablet 25 mEq PO once; dissolve in 4 ounces of water or me1 juice Route: PO; 22:38 Follow up: Response: No adverse reaction me1 Disposition Summary: 01/07/23 22:01 Discharge Ordered Notes: Location: Home lyle Problem: new lyle Symptoms: have improved lyle Condition: Stable lyle Diagnosis - Palpitations lyle - Hypokalemia lyle Followup: lyle - With: Private Physician - When: 2 - 3 days - Reason: Recheck today's complaints, Continuance of care, Re-evaluation by your physician Discharge Instructions: - Discharge Summary Sheet lyle - Potassium Content of Foods lyle - Palpitations lyle - Palpitations, [id number] lyle - Hypokalemia lyle Forms: - Medication Reconciliation Form lyle - Thank You Letter lyle - Antibiotic Education lyle - Prescription Opioid Use lyle - Patient Portal Instructions lyle - Leadership Thank You Letter lyle Signatures: Dispatcher [employer] Robert Rider MD MD cha Sims, Marcus, DO DO ms3 Eda Mackey, RN RN me1
[2023-01-07] MEDS ORDERED: POTASSIUM 25 MEQ EFFERV TAB ONE (22:18)
--- OUTSIDE RECORDS SUMMARY | 2023-01-08 06:42 | XMS REPORT | Continuity of Care Document ---
:1985 Author Organization [facility] t Address [address] [place] [address] Care Team Providers Name Role Phone PCP, PATIENT DOES NOT HAVE A Primary Care Physician Unavaila DEVIN Vigil Attending Clinician Unavailable Devin Duque MD Attending Clinician Doctor Unassigned, [place] Attending Clinician Unavailable MANDY GONZALEZ Attending Clinician Unavailable Mandy Gonzalez DO Attending Clinician DEVIN DUQUE Admitting Clinician Unavailable Payers Payer Name Policy Type Policy Number Effective Date Expiration Date Isidoro carvajal [employer] [id number] 2021 OUT OF NETWORK 00:00:00 [facility] [id number] 2014 00:00:00 Problems This patient has no known problems. Allergies, Adverse Reactions, Alerts Allergy Allergy Status Severity Reaction(s) Onset Inactive Treating Comm ents Source Name Type Date Date Clinician NO KNOWN Drug Active Univers ALLERGIE Class ity [facility] Social History Social Habit Start Date Stop Date Quantity Comments Source Gender identity Universit y [facility] Sexual orientation Univer sity [facility] Exposure to Not sure [facility] SARS-CoV-2 (event) Medica l Branch Sex Assigned At [birth year] Uni versity [facility] 00:00:00 00:00:00 Medical Branch Smoking Status Start Date Stop Date Source Tobacco smoking consumption [facility] Medical unknown Branch Medications Ordered Filled Start Stop Current Ordering Indication Dosage Frequency Signature Comments Components Source Medication Medication Date Date Medication? Clinician (SIG) Name Name ketorolac 2022- No 30mg 30 mg, Unive rs (TORADOL) 12-25 Slow IV ity of injection 07:41: 07:49 Push, [place] 30 mg 00 :00 ONCE, 1 Medical dose, On Branch Fri12/25/22 at 0245, HALLIE iopamidol 2022- No [id number] 100mL 100 mL, Univers (ISOVUE 12-25 Intravenou ity o f 370-500 mL) 06:45: 06:45 s, ONCE, 1 [place] injection 00 :00 dose, On Medica l 100 mL Fri12/25/22 Branch at 0145, Routine FENTanyl PF No 50ug 50 mcg, Un louann (SUBLIMAZE 12-25 Slow IV ity o f (PF)) 06:30: 05:37 Push, [place] injection 00 :00 ONCE, 1 Medical 50 mcg dose, On Branch Fri12/25/22 at 0130, Routine ondansetron 2022- No 4mg 4 mg, Slow Univers (ZOFRAN 12-25 IV Push, ity of (PF)) 05:45: 05:37 ONCE, 1 [place] injection 4 00 :00 dose, On Medi ba mg Fri12/25/22 Branch at 0045, HALLIE ondansetron 2022- No 4mg 4 mg, Slow Univers (ZOFRAN 12-25 IV Push, ity of (PF)) 04:45: 04:49 ONCE, 1 [place] injection 4 00 :00 dose, On Medi ba mg Fri12/24/22 Branch at 2345, HALLIE maalox:diph 2022-2022- No 15mL 15 mL, Uni vers enhydrAMINE 12-25 Oral, ity of :lidocaine 04:45: 04:49 ONCE, 1 Yonny as 2 % viscous 00 :00 dose, On Medi ba 1:1:1 12/24/23 Branch ([facility]MOUT at 2345, [facility]) Routine oral suspension 15 mL dicyclomine Yes [id number] 20mg Take 1 Univers 20 mg 9-06 tablet by ity of tablet 00:00: mouth [place] 00 every 6 Medical (six) Branch hours as needed for Abdominal pain. ketorolac Yes [id number] 10mg Take 1 Un louann 10 mg 9-06 tablet by ity of tablet 00:00: mouth [place] 00 every 6 Medical (six) Branch hours as needed for Pain (scale 7-10). ondansetron Yes [id number] 4mg Take 1 Univers (ZOFRAN) 4 9-06 tablet by ity of mg tablet 00:00: mouth [place] 00 every 8 Medical (eight) Branch hours as needed for Nausea and Vomiting (N/V). predniSONE 2021- No [id number] 60mg Take 6 Univers 10 mg 3-10 03-18 tablets by ity of tablet 00:00: 04:59 mouth [place] 00 :00 daily for Medical 7 days. Branch valACYclovi 2021- No [id number] 1g Take 1 Univers r (VALTREX) 3-10 03-18 tablet by it y of 1 gram 00:00: 04:59 mouth 3 [place] tablet 00 :00 (three) Medical times Branch daily for 7 days. Vital Signs Vital Name Observation Time Observation Value Comments Source Systolic blood 2022-12-25 07:00:00 120 mm[Hg] [facility] Diastolic blood 2022-12-25 07:00:00 59 mm[Hg] [facility] Heart rate 2022-12-25 07:00:00 59 /min [facility] Respiratory rate 2022-12-25 07:00:00 13 /min [facility] Oxygen saturation in 2022-12-25 07:00:00 98 /min [facility] Arterial blood by [facility] Pulse oximetry Branch Body temperature 2022-12-25 04:27:00 37.22 Theresa [facility] Body height 2022-12-25 04:27:00 165.1 cm [facility] Body weight 2022-12-25 04:27:00 108.274 kg [facility] BMI 2022-12-25 04:27:00 39.72 kg/m2 [facility] Systolic blood 2021-06-29 00:14:00 142 mm[Hg] Univer sity of pressure [facility] Diastolic blood 2021-06-29 00:14:00 82 mm[Hg] Unive rsity of [facility] Heart rate 2021-06-29 00:14:00 96 /min [facility] Body temperature 2021-06-29 00:14:00 37.17 Theresa [facility] Respiratory rate 2021-06-29 00:14:00 18 /min [facility] Body weight 2021-06-29 00:14:00 95.255 kg [facility] Oxygen saturation in 2021-06-29 00:14:00 99 /min [facility] Arterial blood by [facility] Pulse oximetry Branch Procedures Procedure Date / Time Performed Performing Clinician Bulmaro e CT ABDOMEN PELVIS W 2022-12-25 05:45:01 Devin Duque [facility] CONTRAST [facility] Branch LIPASE 2022-12-25 04:47:00 Devin Duque [facility] HEPATIC FUNCTION PANEL 2022-12-25 04:47:[address] [facility] ([id number]) [facility] (ALB,T.PRO,BILI T,BU/BC,ALT,AST,ALK PHOS) BASIC METABOLIC PANEL 2022-12-25 04:47:00 Devin Duque [facility] (NA, K, CL, CO2, Medical Branch GLUCOSE, BUN, CREATININE, CA) CBC WITH DIFF 2022-12-25 04:47:00 Devin Duque [facility] URINALYSIS 2022-12-25 04:47:00 Devin Duque [facility] POCT TEST 2022-12-25 04:37:00 Devin Duque [facility] NOTICE OF PRIVACY 2022-12-25 04:25:05 Doctor Unassigned, No [facility] PRACTICES Name Medical Branch CONSENT/REFUSAL FOR 2022-12-25 04:24:17 Doctor Unassigned, No [facility] DIAGNOSIS AND [facility] TREATMENT ASSIGNMENT OF BENEFITS 2021-06-29 00:43:24 Doctor Unassigned, No [facility] NOTICE OF PRIVACY 2021-06-29 00:07:43 Doctor Unassigned, No [facility] Encounters Start End Encounter Admission Attending Care Care Encounter Source Date/Time Date/Time Type Type Clinicians Facility Department ID 2022-12-24 2022-12-25 Emergency X [facility] ERT [id number] Univers 23:31:00 02:59:00 DEVIN itmitzi [facility] 2022-12-24 2022-12-25 [facility] [id number] Univers 23:31:00 02:59:00 Devin HANKS [id number] ity [facility] [id number] [facility] [id number] [address] 2022-12-24 2022-12-24 Orders Doctor MARCI [id number] Univers 00:00:00 00:00:00 Only Unassigned, JEREMIAS [id number] ity of [place] [facility] [id number] Yonny [id number] [address] 2021-06-28 2021-06-28 Emergency X [facility] ERT [id number] Univers 18:18:00 18:46:00 MANDY jose [facility] 2021-06-28 2021-06-28 [facility] [id number] Univers 18:18:00 18:46:00 Mandy HANKS [id number] ity [facility] [id number] [facility] [id number] [address] Results Test Description Test Time Test Comments Results Result Comments Source POCT TEST 2022-12-25 04:37:00 Test Item Value Reference Range Interpretation Comme nts POCT PREG (test code = 1605) Negative On board controls acceptable with C Line (test code = 3574) Yes POCT PREG LOT # (test code = 3575) [id number] POCT PREG TEST DATE (test code = 3576) 04/23/2024 Lab Interpretation (test code = 10227-6) [facility]
--- NOTE | 2023-01-08 14:30 | EKG ---
Test Date: 2023-01-07 Test Time: 20:54:24 Senior System Operator: MEASUREMENT RESULTS: Intervals: Rate: 82 HI: 156 QRSD: 106 QT: 390 QTc: 455 [place]: P: 58 HI: 156 QRS: -11 T: 45 INTERPRETIVE STATEMENTS: Normal sinus rhythm Normal ECG Compared to ECG 05/13/2022 11:25:32 Incomplete right bundle-branch block no longer present Left ventricular hypertrophy no longer present Electronically Signed On 01-08-23 14:30:10 CDT by Francisco Quezada
== END 2023-01-07 22:38 | disposition home or self-care (01) ==
LOC: ER 19:58
DX: E87.6 Hypokalemia (principal); Z90.49 Acquired absence of other specified parts of digestive tract
CPT/HCPCS: 85025; 80048; 36415; 83735; 85379; 80076; 84484; 71275; 71045; Q9967; J7030; 93005